=== PATIENT | male | born 1960 | race Caucasian/White ===

== ENCOUNTER → 2020-12-13 15:47 | Outpatient (CLI) | payer OTHER, SELFPAY ==
--- NOTE | ~2020-12-13 | MR_ITS ---
EXAMINATION: MR lumbar spine wo con EXAM DATE: 12/13/2020 17:09 INDICATION: Radiculopathy, lumbar region, low back pain, left leg, foot numbness and tingling. Right foot and toe numbness. Bilateral hip pain. TECHNIQUE: Multi-sequential, multiplanar MR images of the lumbar spine were obtained without contrast . Sagittal T1, T2, T2 fat saturation images. Axial T2 weighted images. Comparison is made to prior examination from 12/29/2018. FINDINGS: There is mild diffuse thoracolumbar disc disease. There is 4 mm anterolisthesis L4 on L5 wi thout spondylolysis. The conus medullaris terminates at the T12-L1 level and has normal signal intens ity and morphology. There are no suspicious marrow signal abnormalities. Paraspinal soft tissue is u nremarkable. Level by level evaluation: T12-L1: There is a mild diffuse disc bulge. Facet arthropathy: None. Neural foraminal stenosis: No stenosis. Central canal stenosis: Mild. L1-L2: There is a mild diffuse disc bulge. Facet arthropathy: Mild. Neural foraminal stenosis: No stenosis. Central canal stenosis: No stenosis. L2-L3: There is a mild to moderate diffuse disc bulge. Facet arthropathy: Mild to moderate. Neural foraminal stenosis: Mild to moderate bilateral. Central canal stenosis: Moderate. L3-L4: There is a mild to moderate diffuse disc bulge. Facet arthropathy: Moderate. Neural foraminal stenosis: Moderate bilateral. Central canal stenosis: Mild to moderate. L4-L5: There is a moderate diffuse disc bulge. Facet arthropathy: Severe . Ligamentum flavum enlargement. Neural foraminal stenosis: Moderate to severe bilateral. Central canal stenosis: Severe. L5-S1: There is a mild diffuse disc bulge. Facet arthropathy: Mild. Neural foraminal stenosis: Mild bilateral. Central canal stenosis: No stenosis. IMPRESSION: 1. L4-5 severe central canal stenosis and moderate to severe bilateral neural foraminal stenosis. 2. Less spondylosis above superimposed on somewhat congenitally narrow spinal canal. Reviewed, dictated and finalized at location B.
== END ==
PROVIDERS: PCP Internal Medicine; Visit Provider Nurse Practitioner Family
DX: M54.16 Radiculopathy, lumbar region (principal); M48.061 Spinal stenosis, lumbar region without neurogenic claudication; M47.816 Spondylosis without myelopathy or radiculopathy, lumbar region
CPT/HCPCS: 72148

== ENCOUNTER → 2021-11-16 09:39 | Outpatient (CLI) | payer OTHER, SELFPAY ==
--- NOTE | ~2021-11-16 | XR_ITS ---
EXAMINATION: XR thoracic spine 2V DATE: 11/16/2021 10:00 INDICATION: Thoracic back pain TECHNIQUE: AP, lateral and lateral swimmer's views of the thoracic spine were obtained. COMPARISON: None. FINDINGS: Bone alignment is normal. There is no fracture. There is mild loss of intervertebral disc s pace height at multiple levels in the thoracic spine. The vertebral body heights are maintained.. Sma ll degenerative osteophytes project from the anterior endplates of multiple vertebral bodies. Surgica l clips in the right upper quadrant are likely from prior cholecystectomy. IMPRESSION: 1. Moderate thoracic spondylosis without acute findings. Reviewed, dictated and finalized at location F.
== END ==
PROVIDERS: PCP Family Medicine; Visit Provider Nurse Practitioner Family
DX: M54.6 Pain in thoracic spine (principal); M47.814 Spondylosis without myelopathy or radiculopathy, thoracic region
CPT/HCPCS: 72070

== ENCOUNTER → 2022-03-06 10:28 | Outpatient (CLI) | payer OTHER, SELFPAY ==
--- NOTE | ~2022-03-06 | MR_ITS ---
EXAMINATION: MR lumbar spine wo con DATE: 03/06/2022 11:07 INDICATION: Dorsalgia, unspecified. TECHNIQUE: Magnetic resonance imaging (MRI) of the lumbar spine was performed without intravenous con trast. Sequences included sagittal T2-weighted FSE, sagittal T2-weighted FS FSE, sagittal T1-weighted FSE, and axial T2-weighted FSE. COMPARISON: Lumbar spine MRI 12/13/2020 FINDINGS: There is 5 degrees levocurvature of lumbar spine. There is 3 mm anterolisthesis of L4 on L5 . There is mild chronic anterior wedging of T11, T12, and L1 vertebral bodies. There is mildly decrea sed disc height at L1-L2 and L4-L5. The distal spinal cord signal intensity is normal. The conus medu llaris is at T12-L1. The following disc levels are specifically discussed: L1-L2: The disc is bulging. There is mild bilateral facet joint osteoarthritis. There is mild bilater al neural foraminal stenosis. There is mild central canal stenosis. L2-L3: The disc is bulging. There is mild bilateral facet joint osteoarthritis. There is moderate dionicio ateral neural foraminal stenosis. There is mild central canal stenosis. There is asymmetric moderate stenosis of left lateral recess. L3-L4: The disc is bulging and has an annular fissure. There is moderate right and mild left facet vignesh int osteoarthritis. There is moderate bilateral neural foraminal stenosis. There is mild central jasmyn l stenosis. L4-L5: The disc is bulging and has an annular fissure. There is severe bilateral facet joint osteoart hritis. There is moderate bilateral neural foraminal stenosis. There is moderate central canal stenos is. There is severe stenosis of right lateral recess. L5-S1: The disc does not extend beyond the endplate margin. There is moderate bilateral facet joint o steoarthritis. There is mild right neural foraminal stenosis. There is no central canal stenosis. IMPRESSION: 1. Moderate lumbar spondylosis, stable from 12/13/2020. Reviewed, dictated and finalized at location B.
--- NOTE | ~2022-03-06 | XR_ITS ---
EXAMINATION: XR lumbar spine min 4V DATE: 03/06/2022 11:11 INDICATION: Low back pain TECHNIQUE: Anteroposterior, lateral, and bilateral oblique views of the lumbar spine, and cone-down l ateral view of the lumbosacral junction were obtained. COMPARISON: MRI from today FINDINGS: There are 3 mm of anterolisthesis of L4 on L5. Bone alignment is otherwise normal. Mild chr onic anterior wedging is noted in the L1 vertebral body. The lumbar vertebral body heights are otherw ise maintained. There is no fracture. There is mild loss of intervertebral disc space height at L1-2 and L4-5. There is moderate to severe facet joint osteoarthritis of the lumbar spine. Surgical clips in the right upper quadrant are likely from prior cholecystectomy. A large volume of colonic stool is present. IMPRESSION: 1. Moderate lumbar spondylosis without acute findings. Reviewed, dictated and finalized at location A.
== END ==
PROVIDERS: PCP Family Medicine; Visit Provider Neurological Surgery
DX: M47.896 Other spondylosis, lumbar region (principal)
CPT/HCPCS: 72110; 72148

== ENCOUNTER → 2022-03-08 14:25 | Outpatient (CLI) | payer OTHER, SELFPAY ==
--- NOTE | ~2022-03-08 | XR_ITS ---
EXAMINATION: XR lumbar spine min 4V DATE: 03/08/2022 15:02 INDICATION: Spinal stenosis, lumbar region without neurogenic claudication. Low back pain. TECHNIQUE: 5 views of lumbar spine including flexion and extension views were obtained. COMPARISON: Lumbar spine radiographs 03/06/2022 FINDINGS: There is 4 mm anterolisthesis of L4 on L5. There is 10 degrees levoscoliosis of lumbar spin e. There is mild chronic anterior wedging of L1 vertebral body. There is moderately decreased disc he ight at L1-L2 and mildly decreased disc height at L4-L5. There is multilevel facet joint osteoarthrit is, severe at L4-L5. There is no abnormal motion with flexion or extension. Surgical clips in the rig ht upper quadrant are likely from cholecystectomy. IMPRESSION: 1. Moderate lumbar spondylosis. 2. Lumbar levoscoliosis. Reviewed, dictated and finalized at location A.
== END ==
PROVIDERS: PCP Family Medicine; Visit Provider Neurological Surgery
DX: M48.061 Spinal stenosis, lumbar region without neurogenic claudication (principal); M47.816 Spondylosis without myelopathy or radiculopathy, lumbar region; M41.9 Scoliosis, unspecified
CPT/HCPCS: 72110